=== PATIENT | male | born 1985 | race Caucasian/White ===

== ENCOUNTER 2020-11-13 09:06 | Emergency (ER) | payer MEDICAID ==
[~2020-11-13] VITALS: Ht 177.8 cm; Wt 86.2 kg
[2020-11-13 09:58] VITALS: BP 129/75
--- NOTE | 2020-11-13 09:58 | NUR ---
SPLINT APPLIED ON LEFT PINKY FINGER. PATIENT A/OX4, IN NO DISTRESS NOTED. Patient discharged to home in stable condition. Written and verbal after care instructions given. Patient verbalizes understanding of instruction.
== END 2020-11-13 10:00 | disposition home or self-care (01) ==
LOC: ER 09:16
DX: S62.637A Displaced fracture of distal phalanx of left little finger, initial encounter for closed fracture (principal); S00.81XA Abrasion of other part of head, initial encounter; Z60.2 Problems related to living alone; V23.4XXA Motorcycle driver injured in collision with car, pick-up truck or van in traffic accident, initial encounter; Y93.55 Activity, bike riding; Y92.89 Other specified places as the place of occurrence of the external cause; Y99.8 Other external cause status
CPT/HCPCS: 29130; 73130; 99283; A6403